=== PATIENT | male | born 1965 | race Caucasian/White ===

== ENCOUNTER 2019-10-27 15:34 | Emergency (ER) | payer OTHER ==
[2019-10-27] MEDS ORDERED: HYDROcodone/ACETAMIN 5-325 MG* 1 TAB PO ONE ×2 (15:57→15:59)
--- NOTE | 2019-10-27 15:57 | ED ---
Lower Extremity - HPI Summary HPI Summary: Pt. is a 54 y.o male who presents to the ER for a left upper leg injury that occurred today. Pt. states he slipped walking along a steep hill and his left foot bent back to his buttocks and he slid down hill. Pt. denies head injury or LOC. Pt. states he felt a pop in his left distal thigh. Initially was able to walk and drive. Pt. notes localized tingling to thigh but denies distal tingling /numbness. No significant past medical hx. Is not anticoagulated. Sxs are mild in severity. Walking makes sxs worse. Nothing makes sxs better. Pt. also noted pain to left low back. - History of Current Complaint Chief Complaint: EDExtremityLower Stated Complaint: BACK AND LEG PAIN PER PT Time Seen by Provider: 10/27/19 15:47 Hx Obtained From: Patient Pain Intensity: 9 - Allergies/Home Medications Allergies/Adverse Reactions: Allergies Allergy/AdvReac Type Severity Reaction Status Date / Time No Known Allergies Allergy Verified 10/28/19 14:26 Home Medications: Home Medications Mesalamine CAP (NF) [Delzicol (NF)] 800 mg PO QAM 10/27/19 [History Confirmed ] PMH/Surg Hx/FS Hx/Imm Hx Previously Healthy: Yes Endocrine/Hematology History: Denies: Hx Diabetes, Hx Thyroid Disease Cardiovascular History: Reports: Hx Angina - chest pressure Denies: Hx Coronary Artery Disease, Hx Hypercholesterolemia, Hx Hypertension , Hx Myocardial Infarction, Hx Pacemaker/ICD, Hx Peripheral Vascular Disease, Hx Valvular Heart Disease Respiratory History: Denies: Hx Asthma, Hx Chronic Obstructive Pulmonary Disease (COPD) GI History: Reports: Other GI Disorders - ulc colitis History: Denies: Hx Renal Disease Musculoskeletal History: Denies: Hx Arthritis, Hx Rheumatoid Arthritis, Hx Osteoporosis Sensory History: Denies: Hx Cataracts, Hx Contacts or Glasses, Hx Glaucoma, Hx Hearing Aid Opthamlomology History: Denies: Hx Cataracts, Hx Contacts or Glasses, Hx Glaucoma Neurological History: Reports: Other Neuro Impairments/Disorders - neuropathy babs hands Denies: Hx Headaches, Hx Seizures, Hx Transient Ischemic Attacks (TIA) Psychiatric History: Denies: Hx Anxiety, Hx Depression, Hx Panic Disorder - Surgical History Surgery Procedure, Year, and Place: RHINOPLASTY Infectious Disease History: No Infectious Disease History: Denies: Traveled Outside the [place] in Last 30 Days - Family History Known Family History: Positive: Non-Contributory - Social History Occupation: Employed Full-time Lives: With Family Alcohol Use: Daily Alcohol Amount: wine, 1-2 glasses a night Substance Use Type: Reports: None Smoking Status (MU): Current Some Day Smoker Type: Cigars Amount Used/How Often: when golfing Review of Systems Positive: Other - pain to left upper leg Skin: Negative Positive: Weakness, Paresthesia. Negative: Numbness All Other Systems Reviewed And Are Negative: Yes Physical Exam Triage Information Reviewed: Yes Vital Signs On Initial Exam: Initial Vitals Temp Pulse Resp BP Pulse Ox 97.6 F 90 19 173/126 100 10/27/19 15:35 10/27/19 15:35 10/27/19 15:35 10/27/19 15:35 10/27/19 15:35 Vital Signs Reviewed: Yes Appearance: Positive: Pain Distress - Pt. sitting up in bed, appears in pain but nontoxic. present. Skin: Positive: Warm, Dry Head/Face: Positive: Normal Head/Face Inspection Eyes: Positive: Normal, EOMI, MILES Neck: Positive: Supple Respiratory/Lung Sounds: Positive: Clear to Auscultation, Breath Sounds Present Cardiovascular: Positive: Normal, RRR Musculoskeletal: Positive: Other - Pain to palpation over superior patella. Good pedal pulse. No normal sensation. Compartments are soft. Cannot lift left leg off of bed and cannot extend at knee. No breaks in the skin. Pain over left SI joint. Neurological: Positive: Normal, Alert, Oriented to Person Place, Time, CN Intact II-III Psychiatric: Positive: Affect/Mood Appropriate Procedures - Sedation Patient Received Moderate/Deep Sedation with Procedure: No Diagnostics - Vital Signs Vital Signs Temp Pulse Resp BP Pulse Ox 10/27/19 15:35 97.6 F 90 19 173/126 100 - Laboratory Lab Statement: Any lab studies that have been ordered have been reviewed, and results considered in the medical decision making process. Lower Extremity Course/Dx - Course Course Of Treatment: Pt. with left upper leg injury. Suspect quadriceps tendon rupture based on fall and exam. Pt. given a dose of lortab for pain. Xrays of lumbar and left leg negative for fx or dislocation per radiology. Discussed case with Dr. Aguirre, ortho., who will see pt. in office 10/29 at 0800. Knee immobilizer and crutches placed. Pt. declines need for further pain medication. Rx for lortab given. [employer] reviewed. Discussed return precautions and signs of compartment syndrome. To ice and elevate. Pt. understands and agrees with plan. - Diagnoses Differential Diagnosis/HQI/PQRI: Positive: Dislocation, Fracture (Closed), Sprain, Strain Provider Diagnoses: Rupture quadriceps tendon, Leg injury, Lumbar strain Discharge ED - Sign-Out/Discharge Documenting (check all that apply): Patient Departure - Discharge Plan Condition: Good Disposition: HOME Prescriptions: Hydrocodone/Acetaminophen [Hydrocodone-Acetamin 5-325 mg] 1 each PO Q6H #12 tablet MDD 4 Patient Education Materials: Hamstring Injury (ED), Low Back Strain (ED), Tendon Rupture (ED) Referrals: Darlene Aguirre MD [Medical Doctor] - Joshua Guzman MD [Primary Care Provider] - Additional Instructions: Dr. Aguirre will see you in her office 10/29/2019, at 8:00 am Wear knee immobilizer and use crutches for walking Do not bear weight onto left leg Ice and elevate Pain medication as directed Also take 600mg motrin every 6 hours for pain Return to ER for increased pain, swelling, numbness, or if concerned - Billing Disposition and Condition Condition: GOOD Disposition: Home
[2019-10-27 17:51] VITALS: BP 136/99
== END 2019-10-27 17:50 | disposition home or self-care (01) ==
LOC: ED 15:34
DX: S76.112A Strain of left quadriceps muscle, fascia and tendon, initial encounter (principal); S39.012A Strain of muscle, fascia and tendon of lower back, initial encounter; M54.9 Dorsalgia, unspecified; Z79.899 Other long term (current) drug therapy; Z72.0 Tobacco use; W01.0XXA Fall on same level from slipping, tripping and stumbling without subsequent striking against object, initial encounter; Y92.9 Unspecified place or not applicable
CPT/HCPCS: 72110; 99283